=== PATIENT | male | born 1955 | race Caucasian/White ===

== ENCOUNTER 2018-06-28 09:14 | Day surgery (SDC) | payer BC ==
[~2018-06-28] VITALS: Ht 195.6 cm; Wt 113.3 kg
[~2018-06-28 09:14] MED LIST: CYCL10 PO; ESZO3 PO; GABA300 PO; HYDCHL25 PO; LISI20 PO; MULTI VITAMIN1 EACH PO; OXYC10TA19 PO; OXYC15ER PO; OXYC40ER PO; PRAV20 PO; Stool Softener100 MG PO; TUMS DUAL ACTI1 EACH PO; ZESTORETIC 20-251 EA PO
[2018-06-28] MEDS ORDERED: SIME80CH (09:49)
--- NOTE | 2018-06-28 09:52 | NUR ---
06/28/18 0952 AinsleyTamar garcia BLOOD DRAWN FROM IV SITE FOR HEP C SCREEING BY EDE.
== END 2018-06-28 12:08 | disposition home or self-care (01) ==
LOC: ORSCSDS 09:14
PROVIDERS: Internal Medicine Gastroenterology
PROC: 0DBM8ZX Excision of Descending Colon, Via Natural or Artificial Opening Endoscopic, Diagnostic (ICD-10-PCS; principal; 2018-06-28 10:45)
DX: Z12.11 Encounter for screening for malignant neoplasm of colon (principal); D12.4 Benign neoplasm of descending colon; K57.30 Diverticulosis of large intestine without perforation or abscess without bleeding; R73.03 Prediabetes; E66.9 Obesity, unspecified; E78.00 Pure hypercholesterolemia, unspecified; I10 Essential (primary) hypertension; Z68.30 Body mass index [BMI] 30.0-30.9, adult; Z87.891 Personal history of nicotine dependence; Z79.899 Other long term (current) drug therapy
CPT/HCPCS: 86803; 88305; J1980; J7120

== ENCOUNTER → 2021-06-09 | Outpatient (CLI) | payer BC ==
[~2021-06-09] MED LIST changes: +SIME80CH
[2021-06-09 13:47] LABS: Hematocrit 44.2 % (37.0-53.0); Hemoglobin 14.5 g/dL (13.5-17.5); Mean Corpuscular HGB 30.1 pg (26.0-34.0); Mean Corpuscular HGB Conc 32.8 g/dL (31.5-36.5); Mean Corpuscular Volume 92 fL (80-100); Mean Platelet Volume 11.4 fL (9.1-12.4); Platelet Count 225 K/mm3 (150-400); RDW Coefficient Variation 13.1 % (11.7-14.2); RDW Standard Deviation 44.3 fL (35.1-46.3); Red Blood Cell Count 4.81 M/mm3 (4.30-5.90); White Blood Cell Count 7.06 K/mm3 (4.00-11.30)
[2021-06-09 19:08] LABS: Anion Gap 7 mmol/L (6-16); Blood Urea Nitrogen 21 mg/dL (8-24); Bun/Creatinine Ratio 19.4 (12.0-20.0); CO2, Blood 28 mmol/L (21-32); Calcium, Blood 9.8 mg/dL (8.5-10.1); Chloride, Blood 100 mmol/L (98-108); Creatinine, Blood 1.08 mg/dL (0.60-1.20); Glomerular Filtration Rate >60 (60-); Glucose, Blood 119 mg/dL (70-99); Potassium, Blood 4.6 mmol/L (3.5-5.5); Sodium, Blood 135 mmol/L (136-145)
== END | disposition home or self-care (01) ==
LOC: LAB SHORT 08:58 → LAB 08:58
PROVIDERS: Internal Medicine
DX: E11.9 Type 2 diabetes mellitus without complications (principal); I10 Essential (primary) hypertension
CPT/HCPCS: 80048; 83036; 85027

== ENCOUNTER → 2021-11-10 | Outpatient (CLI) | payer BC ==
[2021-11-10 12:13] LABS: Hemoglobin 14.1 g/dL (13.5-17.5); Mean Corpuscular HGB 30.4 pg (26.0-34.0); Mean Corpuscular HGB Conc 32.8 g/dL (31.5-36.5); Mean Corpuscular Volume 93 fL (80-100); Mean Platelet Volume 11.5 fL (9.1-12.4); Platelet Count 202 K/mm3 (150-400); RDW Coefficient Variation 13.2 % (11.7-14.2); RDW Standard Deviation 45.1 fL (35.1-46.3); Red Blood Cell Count 4.64 M/mm3 (4.30-5.90); White Blood Cell Count 4.74 K/mm3 (4.00-11.30)
[2021-11-10 13:05] LABS: Albumin/Globulin Ratio 1.2 (0.8-1.8); Bilirubin, Total 0.8 mg/dL (0.1-1.0); Creatinine, Blood 0.9 mg/dL (0.60-1.20); Globulin, Blood 3.3 g/dL (2.2-4.0); Potassium, Blood 4.1 mmol/L (3.5-5.5); Thyroid Stimulating Hormone 4.3 uIU/mL (0.360-4.800); Total Protein, Blood 7.3 g/dL (6.4-8.2)
== END | disposition home or self-care (01) ==
LOC: LAB SHORT 09:50 → LAB 09:50
PROVIDERS: Internal Medicine
DX: Z13.29 Encounter for screening for other suspected endocrine disorder (principal); D50.8 Other iron deficiency anemias; E78.2 Mixed hyperlipidemia; R73.01 Impaired fasting glucose
CPT/HCPCS: 80053; 83036; 84443; 85027

== ENCOUNTER 2023-04-27 09:44 | Day surgery (SDC) | payer BC ==
[~2023-04-27] VITALS: Ht 193 cm; Wt 98.1 kg
[2023-04-27] MEDS ORDERED: AMLO10 (09:58)
[2023-04-27] MEDS ORDERED: BUPRENORPHINE HC8 MG (09:58)
[2023-04-27] MEDS ORDERED: DICLOFENAC SOD100 GM (09:59)
[2023-04-27] MEDS ORDERED: XARELTO20 MG (09:59)
[2023-04-27] MEDS ORDERED: TADA10TA (09:59)
[2023-04-27 12:05] VITALS: BP 107/67
== END 2023-04-27 11:57 | disposition home or self-care (01) ==
LOC: ORSCSDS 09:44
PROVIDERS: Internal Medicine Gastroenterology
PROC: 0DJD8ZZ Inspection of Lower Intestinal Tract, Via Natural or Artificial Opening Endoscopic (ICD-10-PCS; principal; 2023-04-27 11:00)
DX: Z12.11 Encounter for screening for malignant neoplasm of colon (principal); K57.30 Diverticulosis of large intestine without perforation or abscess without bleeding; Z86.010 Personal history of colon polyps; I82.402 Acute embolism and thrombosis of unspecified deep veins of left lower extremity; Z79.01 Long term (current) use of anticoagulants; Z79.899 Other long term (current) drug therapy; Z87.891 Personal history of nicotine dependence
CPT/HCPCS: J2704; J7120

== ENCOUNTER 2024-04-26 06:27 | Day surgery (SDC) | payer BC ==
[~2024-04-26] VITALS: Ht 188 cm; Wt 100.1 kg
[~2024-04-26 06:27] MED LIST changes: +AMLO10; +BUPRENORPHINE HC8 MG; +DICLOFENAC SOD100 GM; +TADA10TA; +XARELTO20 MG
[2024-04-26] MEDS ORDERED: Lisinopril-Hct1 EAC4 (07:00)
[2024-04-26] MEDS ORDERED: SUBOXONE 8 MG-1 EACH (07:01)
[2024-04-26] MEDS ORDERED: CYCL10 (07:01)
[2024-04-26] MEDS ORDERED: DOCU100 (07:01)
[2024-04-26] MEDS ORDERED: MULVITA (07:02)
[2024-04-26] MEDS ORDERED: ALBU90OI (07:02)
[2024-04-26] MEDS ORDERED: propofoL 50 ML IV ONE (07:26)
[2024-04-26] MEDS ORDERED: Lactated Ringer's 1,000 ML IV ONE ×2 (07:26→07:55)
[2024-04-26 08:50] VITALS: BP 113/72
== END 2024-04-26 08:45 | disposition home or self-care (01) ==
LOC: ORSCSDS 06:27
DX: D64.9 Anemia, unspecified (principal); K21.00 Gastro-esophageal reflux disease with esophagitis, without bleeding; K29.70 Gastritis, unspecified, without bleeding; K29.80 Duodenitis without bleeding; N40.0 Benign prostatic hyperplasia without lower urinary tract symptoms; Z79.899 Other long term (current) drug therapy; Z87.891 Personal history of nicotine dependence
CPT/HCPCS: 82947; 88305; 88341; 88342; J2704; J7120

== ENCOUNTER → 2024-09-11 | Outpatient (CLI) | payer MEDICARE, BC ==
[~2024-09-11] MED LIST changes: +ALBU90OI; +CYCL10; +DOCU100; +Lisinopril-Hct1 EAC4; +MULVITA; +SUBOXONE 8 MG-1 EACH
[2024-09-11 15:16] LABS: Creatinine Urine 48.9 mg/dL (27.00-270.00); Protein, Urine Quantitative 5.6 mg/dL (0.0-11.9)
[2024-09-11 15:17] LABS: Microalbumin, Urine Quant. 5.08 mg/L (0.000-20.000)
== END | disposition home or self-care (01) ==
LOC: LAB 09:55 → LAB SHORT 09:55 → LAB FUT 09-10 11:05
PROVIDERS: Internal Medicine Nephrology
DX: N18.2 Chronic kidney disease, stage 2 (mild) (principal); D63.1 Anemia in chronic kidney disease; N25.81 Secondary hyperparathyroidism of renal origin; E55.9 Vitamin D deficiency, unspecified; E78.00 Pure hypercholesterolemia, unspecified; N39.0 Urinary tract infection, site not specified; N40.1 Benign prostatic hyperplasia with lower urinary tract symptoms; G60.9 Hereditary and idiopathic neuropathy, unspecified; D51.8 Other vitamin B12 deficiency anemias; D50.9 Iron deficiency anemia, unspecified; R76.9 Abnormal immunological finding in serum, unspecified; R94.6 Abnormal results of thyroid function studies; R94.5 Abnormal results of liver function studies
CPT/HCPCS: 81050; 82043; 82570; 84156

== ENCOUNTER 2025-04-30 17:17 | Observation (INO) | payer OTHER, MEDICARE, BC ==
[~2025-04-30] VITALS: Ht 198.1 cm; Wt 95.2 kg
[~2025-04-30 17:17] MED LIST changes: -ADALAT CC60 MG PO; -BUPRENORPHINE HC2 MG SL; -METR500 PO; -PANTOPRAZOLE SO40 M1 PO; -PRILOSEC OTC20 MG; -TAMS.4ER PO; -VISBIOME 112.51 EACH PO; -ZESTRIL40 M1 PO
[2025-04-30] MEDS ORDERED: Pantoprazole Sodium 40 MG Injection IV ONE (18:15)
[2025-04-30 19:59] LABS: BASOPHILS ABSOLUTE AUTO 0.04 K/mm3 (0.00-0.23); BASOPHILS PERCENT AUTO 0 % (0-2); EOSINOPHILS ABSOLUTE AUTO 0.03 K/mm3 (0.00-0.68); EOSINOPHILS PERCENT AUTO 0 % (0-6); Hematocrit 30.4 % (37.0-53.0); Hemoglobin 10.3 g/dL (13.5-17.5); IMMATURE GRAN ABSOLUTE AUTO 0.08 K/mm3 (0.00-0.10); IMMATURE GRAN PERCENT AUTO 1 % (0-1); LYMPHOCYTES ABSOLUTE AUTO 1.83 K/mm3 (0.84-5.20); LYMPHOCYTES PERCENT AUTO 14 % (21-46); MONOCYTES ABSOLUTE AUTO 0.78 K/mm3 (0.16-1.47); MONOCYTES PERCENT AUTO 6 % (4-13); Mean Corpuscular HGB Conc 33.9 g/dL (31.5-36.5); Mean Corpuscular Volume 89 fL (80-100); NEUTROPHILS ABSOLUTE AUTO 9.96 K/mm3 (1.96-9.15); NEUTROPHILS PERCENT AUTO 78 % (41-73); NRBC ABSOLUTE 0.00 K/mm3 (0.00-0.02); NRBC Auto 0.0 /100 WBC (0.0-0.2); Platelet Count 173 K/mm3 (150-400); RDW Coefficient Variation 14.2 % (11.7-14.2); RDW Standard Deviation 45.9 fL (35.1-46.3)
[2025-04-30 20:20] LABS: Alanine Aminotransfer (ALT/SGP 26.0 U/L (12-78); Albumin, Blood 3.2 g/dL (3.4-5.0); Albumin/Globulin Ratio 1.1 (0.8-1.8); Anion Gap 10.0 mmol/L (3-11); Aspartate Aminotrans (AST/SGOT 20.0 U/L (12-37); Bilirubin, Total 0.7 mg/dL (0.1-1.0); Blood Urea Nitrogen 25.0 mg/dL (8-24); CO2, Blood 26.0 mmol/L (21-32); Calcium, Blood 9.3 mg/dL (8.5-10.1); Chloride, Blood 97.0 mmol/L (98-108); Creatinine, Blood 1.62 mg/dL (0.60-1.20); Globulin, Blood 2.9 g/dL (2.2-4.0); Glucose, Blood 98.0 mg/dL (70-99); Potassium, Blood 3.8 mmol/L (3.5-5.5); Prothrombin Time Results 11.8 Sec (9.7-11.5); Sodium, Blood 129.0 mmol/L (136-145); Total Protein, Blood 6.1 g/dL (6.4-8.2)
[2025-04-30] MEDS ORDERED: CefTRIAXone Sodium 1,000 MG in NS 100 ML IV ONE (21:05)
[2025-04-30] MEDS ORDERED: NS 1,000 ML IV SCH (21:35)
[2025-04-30 22:11] LABS: Hematocrit 29.3 % (37.0-53.0); Hemoglobin 9.7 g/dL (13.5-17.5)
[2025-04-30] MEDS ORDERED: FLU VACC TS2025(65UP)/MF59C/PF 45 MCG/0.5 ML SYRINGE IM SCH (23:10)
[2025-04-30] MEDS ORDERED: Buprenorphine HCL/Naloxone HCL 8MG-2MG Tab SL SCH (23:59)
[2025-05-01] MEDS ORDERED: NS 1,000 ML IV SCH
[2025-05-01] MEDS ORDERED: CefTRIAXone Sodium 1,000 MG in NS 100 ML IV ONE ×2 (00:10→03:50)
[2025-05-01 01:22] LABS: Hematocrit 28.0 % (37.0-53.0); Hemoglobin 9.4 g/dL (13.5-17.5)
[2025-05-01 02:24] VITALS: BP 122/69
[2025-05-01] MEDS ORDERED: ZESTRIL40 M1 PO (02:43)
[2025-05-01] MEDS ORDERED: HYDCHL25 PO (02:44)
[2025-05-01] MEDS ORDERED: ADALAT CC60 MG PO (02:46)
[2025-05-01 02:49] LABS: Hematocrit 30.3 % (37.0-53.0); Hemoglobin 10.0 g/dL (13.5-17.5)
[2025-05-01] MEDS ORDERED: BUPRENORPHINE HC2 MG SL (02:51)
[2025-05-01] MEDS ORDERED: TAMS.4ER PO (02:54)
[2025-05-01] MEDS ORDERED: PRILOSEC OTC20 MG (02:55)
[2025-05-01 04:43] LABS: BASOPHILS ABSOLUTE AUTO 0.05 K/mm3 (0.00-0.23); BASOPHILS PERCENT AUTO 1 % (0-2); EOSINOPHILS ABSOLUTE AUTO 0.15 K/mm3 (0.00-0.68); EOSINOPHILS PERCENT AUTO 2 % (0-6); Hematocrit 29.0 % (37.0-53.0); Hemoglobin 9.7 g/dL (13.5-17.5); IMMATURE GRAN ABSOLUTE AUTO 0.03 K/mm3 (0.00-0.10); IMMATURE GRAN PERCENT AUTO 0 % (0-1); LYMPHOCYTES ABSOLUTE AUTO 1.70 K/mm3 (0.84-5.20); LYMPHOCYTES PERCENT AUTO 17 % (21-46); MONOCYTES ABSOLUTE AUTO 0.81 K/mm3 (0.16-1.47); MONOCYTES PERCENT AUTO 8 % (4-13); Mean Corpuscular HGB Conc 33.4 g/dL (31.5-36.5); Mean Corpuscular Volume 90 fL (80-100); NEUTROPHILS ABSOLUTE AUTO 7.50 K/mm3 (1.96-9.15); NEUTROPHILS PERCENT AUTO 73 % (41-73); NRBC ABSOLUTE 0.00 K/mm3 (0.00-0.02); NRBC Auto 0.0 /100 WBC (0.0-0.2); Platelet Count 147 K/mm3 (150-400); RDW Coefficient Variation 14.0 % (11.7-14.2); RDW Standard Deviation 46.4 fL (35.1-46.3)
--- NOTE | 2025-05-01 04:53 | NUR ---
STONECUTTER SUMMARY PT IS A NEW ADMIT FROM THE ED [facility]. ADMITTED FOR COLITIS WITH SOME RECTAL BLEEDING. PT REPORTS LAST BM WAS TUESDAY MORNING AND HAD SOME BRIGHT RED BLOOD AND STATES LAST BM BEFORE THAT WAS TUESDAY. AAOX4, PLEASANT AND STANDBY ASSIST TO HELP WITH LINES/CORDS. PT REPORTS MINIMAL ABD PAIN. FULL LIQUID DIET. IV ABX AND FLUIDS PER JUL. HGB 9.7 WITH 0400 CHECK, HAS BEEN STABLE OVER LAST FEW CHECKS. VSS, WCTM.
[2025-05-01 05:08] LABS: Alanine Aminotransfer (ALT/SGP 23.0 U/L (12-78); Albumin, Blood 3.1 g/dL (3.4-5.0); Albumin/Globulin Ratio 1.1 (0.8-1.8); Anion Gap 8.0 mmol/L (3-11); Aspartate Aminotrans (AST/SGOT 17.0 U/L (12-37); Bilirubin, Total 0.7 mg/dL (0.1-1.0); Blood Urea Nitrogen 23.0 mg/dL (8-24); CO2, Blood 28.0 mmol/L (21-32); Calcium, Blood 9.4 mg/dL (8.5-10.1); Chloride, Blood 97.0 mmol/L (98-108); Creatinine, Blood 1.32 mg/dL (0.60-1.20); Globulin, Blood 2.7 g/dL (2.2-4.0); Glucose, Blood 103.0 mg/dL (70-99); Magnesium, Blood 1.8 mg/dL (1.6-2.4); Potassium, Blood 3.3 mmol/L (3.5-5.5); Sodium, Blood 130.0 mmol/L (136-145); Total Protein, Blood 5.8 g/dL (6.4-8.2)
[2025-05-01 08:47] VITALS: BP 118/84
[2025-05-01] MEDS ORDERED: Enoxaparin 40 MG/0.4 ML SYR SC SCH (09:00)
[2025-05-01] MEDS ORDERED: Lactobacil 2-S.Thermo-Bifido 1 1 Cap PO SCH (09:00)
[2025-05-01] MEDS ORDERED: PANTOPRAZOLE SO40 M1 PO (13:59)
[2025-05-01] MEDS ORDERED: VISBIOME 112.51 EACH PO (14:00)
[2025-05-01] MEDS ORDERED: METR500 PO (14:00)
--- NOTE | 2025-05-01 14:54 | NUR ---
DISHCARGE PATIENT IS AOX4 IV FLUIDS AND ABX RAN T/O SHIFT. TOLERATING PO INTAKE WELL. DENIES PAIN, REPORTS NO STOOLS THIS SHIFT. IV TAKEN OUT INTACT. ALL BELONGINGS PACKED AND PATIENT SIGNS DC INSTRUCTIONS, PRESCRIPTIONS IN PACKET WITH PATIENT. VSS. PATIENT WHEELED OUT TO PRIVATE CAR.
[2025-05-01] MEDS ORDERED: CefTRIAXone Sodium 2,000 MG in NS 100 ML IV SCH (21:00)
== END 2025-05-01 14:45 | disposition home or self-care (01) ==
LOC: ER 17:17 → SURS 17:18 → ERHOLD 17:18 → SURS 05-01 01:42
PROVIDERS: Emergency Medicine; ADMIT Internal Medicine
DX: K52.9 Noninfective gastroenteritis and colitis, unspecified (principal); K92.1 Melena; N17.9 Acute kidney failure, unspecified; C64.2 Malignant neoplasm of left kidney, except renal pelvis; D63.0 Anemia in neoplastic disease; G89.29 Other chronic pain; K59.03 Drug induced constipation; T50.905A Adverse effect of unspecified drugs, medicaments and biological substances, initial encounter; K21.9 Gastro-esophageal reflux disease without esophagitis; Z66 Do not resuscitate; Z85.528 Personal history of other malignant neoplasm of kidney; Z87.891 Personal history of nicotine dependence; Z79.899 Other long term (current) drug therapy; Z90.5 Acquired absence of kidney
CPT/HCPCS: 36415; 80053; 83735; 85014; 85018; 85025; 85610; 85730; 86850; 86900; 86901; 93005; 93010; 96365; 96375; 96376; 99285-25; A9270; G0378; J0696; J2470; J7030

== ENCOUNTER → 2025-04-30 | Outpatient (CLI) | payer BC ==
[~2025-04-30] MED LIST changes: +ADALAT CC60 MG PO; +BUPRENORPHINE HC2 MG SL; -DOCU100; +DOCU100 PO; +METR500 PO; +PANTOPRAZOLE SO40 M1 PO; +PRILOSEC OTC20 MG; -TADA10TA; +TADA10TA PO; +TAMS.4ER PO; +VISBIOME 112.51 EACH PO; +ZESTRIL40 M1 PO
[2025-04-30 13:29] LABS: BASOPHILS ABSOLUTE AUTO 0.02 K/mm3 (0.00-0.23); BASOPHILS PERCENT AUTO 0 % (0-2); EOSINOPHILS ABSOLUTE AUTO 0.00 K/mm3 (0.00-0.68); EOSINOPHILS PERCENT AUTO 0 % (0-6); Hematocrit 35.7 % (37.0-53.0); Hemoglobin 11.9 g/dL (13.5-17.5); IMMATURE GRAN ABSOLUTE AUTO 0.05 K/mm3 (0.00-0.10); IMMATURE GRAN PERCENT AUTO 0 % (0-1); LYMPHOCYTES ABSOLUTE AUTO 1.35 K/mm3 (0.84-5.20); LYMPHOCYTES PERCENT AUTO 11 % (21-46); MONOCYTES ABSOLUTE AUTO 0.70 K/mm3 (0.16-1.47); MONOCYTES PERCENT AUTO 6 % (4-13); Mean Corpuscular HGB Conc 33.3 g/dL (31.5-36.5); Mean Corpuscular Volume 91 fL (80-100); NEUTROPHILS ABSOLUTE AUTO 9.94 K/mm3 (1.96-9.15); NEUTROPHILS PERCENT AUTO 82 % (41-73); NRBC ABSOLUTE 0.00 K/mm3 (0.00-0.02); NRBC Auto 0.0 /100 WBC (0.0-0.2); Platelet Count 199 K/mm3 (150-400); RDW Coefficient Variation 14.2 % (11.7-14.2); RDW Standard Deviation 47.0 fL (35.1-46.3)
[2025-04-30 13:48] LABS: Alanine Aminotransfer (ALT/SGP 29.0 U/L (12-78); Albumin, Blood 3.6 g/dL (3.4-5.0); Albumin/Globulin Ratio 1.0 (0.8-1.8); Anion Gap 14.0 mmol/L (3-11); Aspartate Aminotrans (AST/SGOT 18.0 U/L (12-37); Bilirubin, Total 0.8 mg/dL (0.1-1.0); Blood Urea Nitrogen 22.0 mg/dL (8-24); CO2, Blood 29.0 mmol/L (21-32); Calcium, Blood 9.7 mg/dL (8.5-10.1); Chloride, Blood 97.0 mmol/L (98-108); Creatinine, Blood 1.59 mg/dL (0.60-1.20); Globulin, Blood 3.6 g/dL (2.2-4.0); Glucose, Blood 118.0 mg/dL (70-99); Potassium, Blood 4.6 mmol/L (3.5-5.5); Sodium, Blood 135.0 mmol/L (136-145); Total Protein, Blood 7.2 g/dL (6.4-8.2)
[2025-04-30 16:47] LABS: BASOPHILS ABSOLUTE AUTO 0.04 K/mm3 (0.00-0.23); BASOPHILS PERCENT AUTO 0 % (0-2); EOSINOPHILS ABSOLUTE AUTO 0.02 K/mm3 (0.00-0.68); EOSINOPHILS PERCENT AUTO 0 % (0-6); Hematocrit 30.8 % (37.0-53.0); Hemoglobin 10.5 g/dL (13.5-17.5); IMMATURE GRAN ABSOLUTE AUTO 0.05 K/mm3 (0.00-0.10); IMMATURE GRAN PERCENT AUTO 0 % (0-1); LYMPHOCYTES ABSOLUTE AUTO 1.75 K/mm3 (0.84-5.20); LYMPHOCYTES PERCENT AUTO 15 % (21-46); MONOCYTES ABSOLUTE AUTO 0.79 K/mm3 (0.16-1.47); MONOCYTES PERCENT AUTO 7 % (4-13); Mean Corpuscular HGB Conc 34.1 g/dL (31.5-36.5); Mean Corpuscular Volume 89 fL (80-100); NEUTROPHILS ABSOLUTE AUTO 9.38 K/mm3 (1.96-9.15); NEUTROPHILS PERCENT AUTO 78 % (41-73); NRBC ABSOLUTE 0.00 K/mm3 (0.00-0.02); NRBC Auto 0.0 /100 WBC (0.0-0.2); Platelet Count 173 K/mm3 (150-400); RDW Coefficient Variation 14.0 % (11.7-14.2); RDW Standard Deviation 45.8 fL (35.1-46.3)
== END | disposition home or self-care (01) ==
LOC: LAB SHORT 13:24 → LAB 13:24
PROVIDERS: Physician Assistant
DX: I95.9 Hypotension, unspecified (principal)
CPT/HCPCS: 80053; 83690; 85025